=== PATIENT | female | born 1995 | race Caucasian/White ===

== ENCOUNTER 2022-11-21 11:48 | Emergency (ER) | payer SELFPAY ==
[~2022-11-21] VITALS: Ht 170.2 cm; Wt 77.1 kg
[2022-11-21 11:54] VITALS: BP 158/93
--- NOTE | 2022-11-21 11:59 | NUR ---
PT REPORTS LOCATION OF OD WAS IN [facility], BETWEEN [facility] / [facility]
[2022-11-21] MEDS ORDERED: NACL 0.9% 1,000 ML IV ONE (12:00)
[2022-11-21] MEDS ORDERED: ONDANSETRON 4 MG/2 ML VIAL IVP ONE (12:00)
--- NOTE | 2022-11-21 12:03 | NUR ---
CALLED [place] [employer] FOR DISPATCH. PER DISPATCH, WILL SEND PD TO ER
--- NOTE | 2022-11-21 12:40 | NUR ---
[place] [facility] AT BEDSIDE SPEAKING WITH PT
--- NOTE | 2022-11-21 13:00 | NUR ---
PER [place] [employer] OFFICER DARSHAN #[id number], STEPHANIE # [phone]
--- NOTE | 2022-11-21 13:15 | NUR ---
PT REQUESTING TO CALL BROTHER, [facility] @ [phone]
[2022-11-21 14:06] LABS: ACETAMINOPHEN < 0.5 ug/ml (10-30); ANION GAP 10.7 (8-16); ASPARTATE AMINOTRANSFERASE 71 U/L (15-37); CARBON DIOXIDE 24.7 mmol/L (21-32); CHLORIDE 108 mmol/L (98-107); GFR ARICAN-AMERICAN 85 mL/min (>90); GLUCOSE 150 mg/dL (74-106); POTASSIUM 3.4 mmol/L (3.5-5.1); SODIUM SERUM 140 mmol/L (136-145); TOTAL BILIRUBIN 0.4 mg/dL (0.0-1.0); UREA NITROGEN, BLOOD 19 mg/dL (7-18)
[2022-11-21 14:13] LABS: SALICYLATE < 2.8 mg/dL (2.8-20.0)
[2022-11-21 14:18] LABS: BASOPHILS # (AUTO) 0.1 K/uL (0.00-0.22); BASOPHILS % (AUTO) 0.5 % (0.0-2.0); EOSINOPHILS % (AUTO) 0.3 % (0.0-4.0); HEMATOCRIT 28.6 % (36-48); HEMOGLOBIN 9.2 g/dL (12.0-16.0); LYMPHOCYTES # (AUTO) 1.2 K/uL (2.5-16.5); MEAN CORPUSCULAR HEMOGLOBIN 27 pg (27-31); MEAN CORPUSCULAR HGB CONC 32 g/dL (33-37); MEAN CORPUSCULAR VOLUME 84.4 fL (80-94); MONOCYTES # (AUTO) 0.7 K/uL (0.8-1.0); NEUTROPHILS # (AUTO) 9.1 K/uL (1.8-7.7); NEUTROPHILS % (AUTO) 82.2 % (42.2-75.2); PLATELET COUNT (AUTO) 277 K/uL (140-450); RED BLOOD CELL COUNT(AUTO) 3.39 MIL/uL (4.20-5.40); RED CELL DISTRIBUTION WIDTH 15.6 % (11.6-13.7); WHITE BLOOD COUNT (AUTO) 11.1 K/uL (4.8-10.8)
[2022-11-21 15:12] VITALS: BP 127/88
[2022-11-21] MEDS ORDERED: POTASSIUM CHLORIDE 10 MEQ TABER PO ONE (15:45)
[2022-11-21] MEDS ORDERED: NALO4SPR NS (16:09)
--- NOTE | 2022-11-21 16:14 | NUR ---
ATTEMPTED TO CALL [facility] FOR PICKUP BUT NO ANSWER. NOTIFIED PATIENT OF NO ANSWER.
--- NOTE | 2022-11-21 16:15 | NUR ---
HOMELESS RESOURCE AND DRUG RESOURCE OFFERED BY SOCIAL SERVICE.
== END 2022-11-21 16:25 | disposition home or self-care (01) ==
LOC: MED 11:48
DX: T50.991A Poisoning by other drugs, medicaments and biological substances, accidental (unintentional), initial encounter (principal); R41.82 Altered mental status, unspecified; Y92.89 Other specified places as the place of occurrence of the external cause
CPT/HCPCS: 36415; 80053; 85025; 93005; 96361; 96374; 99284; G0480; G0482; J2405; J7030